=== PATIENT | male | born 1940 | race Caucasian/White ===

== ENCOUNTER 2017-07-05 14:09 | Emergency (ER) | payer OTHER ==
[2017-07-05 14:14] VITALS: TEMP 97.9
--- NOTE | 2017-07-05 14:17 | EDPHY ---
H & P Stated Complaint: hit head on landscape timber Source: Patient Exam Limitations: No limitations - Personal History Current Tetanus/Diphtheria Vaccine: Yes Current Tetanus Diphtheria and Acellular Pertussis (TDAP): Yes - Medical/Surgical History Hx Asthma: No Hx Chronic Respiratory Disease: No Hx Diabetes: No Hx Cardiac Disease: Yes Hx Renal Disease: No Hx Cirrhosis: No Hx Alcoholism: No Hx HIV/AIDS: No Hx Splenectomy or Spleen Trauma: No Other PMH: HTN, - Social History Smoking Status: Never smoked Time Seen by Provider: 07/05/17 14:17 HPI/ROS: CHIEF COMPLAINT: Head injury HISTORY OF PRESENT ILLNESS: The patient presents to the ED with complaints of a head injury. The patient reportedly fell while working outside. He struck his head on rocks. There was unknown loss of consciousness. The patient does complain of a severe frontal headache. He complains of some nasal pain and epistaxis which occurred earlier today. The patient does complain of some mild posterior neck pain. He denies any numbness or weakness. He has some very mild discomfort in his bilateral forearms he attributes to a contusion. He denies any decreased range of motion in his upper extremity. He has no complaints of chest pain, back pain, abdominal pain or lower extremity traumatic complaints. REVIEW OF SYSTEMS: A comprehensive 10 point review of systems is otherwise negative aside from elements mentioned in the history of present illness. (Hay Castillo) - Physical Exam Exam: General Appearance: Alert, no distress Head: Multiple macerated lacerations noted to the forehead and bridge of nose approximately 6 cm total length. Eyes: Pupils equal, round, reactive ENT, Mouth: No hemotympanum, no oral trauma Neck: Mild tenderness to palpation in the cervical spine, poorly localized Respiratory: No chest wall tender, subcutaneous air, lungs clear bilaterally Cardiovascular: Regular rate and rhythm Abdomen: Abdomen is soft and nontender, pelvis stable Skin: No lacerations, No abrasion Back: No midline T/L/S pain Extremities: Nontender, full range of motion Neurological: A&Ox3, normal motor function, normal sensory exam (Hay Castillo) Constitutional: Initial Vital Signs Temperature (C) 36.6 C 07/05/17 14:12 Heart Rate 65 07/05/17 14:12 Respiratory Rate 16 07/05/17 14:12 Blood Pressure 151/87 H 07/05/17 14:12 O2 Sat (%) 98 07/05/17 14:12 O2 Delivery Mode Room Air Allergies/Adverse Reactions: Penicillins Allergy (Verified 07/05/17 14:11) Home Medications: Medication Instructions Recorded Advil 07/05/17 Calcium 07/05/17 DIAZEPAM 07/05/17 Fish Oil 1,000 mg Softgel 07/05/17 Flurazepam HCl 07/05/17 Lisinopril 07/05/17 Baker 5/325 (*) 07/05/17 Omeprazole 07/05/17 Terazosin HCl 07/05/17 amLODIPine BESYLATE 07/05/17 Medical Decision Making - Diagnostics Imaging Results: Imaging Impressions Cervical Spine CT 07/05/17 14:21 Impression: 1. Frontal scalp hematoma. 2. Bilateral nasal fractures, fracture extending to the left maxillary nasal spine and associated paranasal soft tissue swelling. 3. Age-related cerebral cortical atrophy, with no acute intracranial abnormality. If there is further clinical concern regarding the patient's symptoms, MR imaging is suggested, if not otherwise contraindicated. Unenhanced CT Scan of the Cervical Spine Technique: A multidetector unenhanced helical CT scan was obtained from the clivus caudally through the upper thoracic spine, with images reformatted at 1.00 mm increments, and are reviewed in soft tissue, bone, and lung windows. Parasagittal and paracoronal reconstructed images are reviewed on the workstation. The DFOV is 16.7 cm. A dose reduction protocol was used. Comparison Study: None. Findings: There is no acute fracture, or facet malalignment. There are ventral and dorsal traction osteophytes at the C3-C4 and C4-C5 levels. The posterior alignment is relatively anatomic. 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 The interspinous distances are normal. The craniocervical junction is normal. The predental space, and the atlantoaxial lateral mass alignment is normal. The base and the tip of the dens are normal. There is no central canal stenosis, neural foraminal impingement, or focal disk herniation identified. There is no prevertebral hematoma or epidural hematoma identified. The prevertebral soft tissues are normal, as are the lung apices. C1-C2: Normal. C2-C3: Normal. C3-C4: There is asymmetric (right significantly greater than left) facet hypertrophy. Uncovertebral degenerative spondylosis results in severe right neural foraminal stenosis. There is minimal left neural foraminal stenosis. There is some circumferential disk bulging, resulting in mild central canal stenosis. C4-C5: There is a dorsal disk osteophyte complex resulting in mild central canal stenosis. Facet hypertrophy and uncovertebral degenerative spondylosis results in severe right neural foraminal stenosis, and there is minimal left neural foraminal stenosis. C5-C6: There is some mild broad-based circumferential disk bulging. There is asymmetric right-sided facet hypertrophy and uncovertebral degenerative spondylosis resulting in mild right neural foraminal stenosis. The left neural foramen remains patent. C6-C7: There is no focal disk herniation, canal stenosis, or significant neural foraminal impingement. C7-T1: Normal. Impression: 1. There is no acute cervical osseous abnormality. 2. 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 If there is further clinical concern regarding the patient's symptoms, correlative MR imaging could be considered, if otherwise not contraindicated. Findings were discussed with Meghan Tavarez M.D. at 15:55, on 07/05/2017. Head CT 07/05/17 14:21 Impression: 1. Frontal scalp hematoma. 2. Bilateral nasal fractures, fracture extending to the left maxillary nasal spine and associated paranasal soft tissue swelling. 3. Age-related cerebral cortical atrophy, with no acute intracranial abnormality. If there is further clinical concern regarding the patient's symptoms, MR imaging is suggested, if not otherwise contraindicated. Unenhanced CT Scan of the Cervical Spine Technique: A multidetector unenhanced helical CT scan was obtained from the clivus caudally through the upper thoracic spine, with images reformatted at 1.00 mm increments, and are reviewed in soft tissue, bone, and lung windows. Parasagittal and paracoronal reconstructed images are reviewed on the workstation. The DFOV is 16.7 cm. A dose reduction protocol was used. Comparison Study: None. Findings: There is no acute fracture, or facet malalignment. There are ventral and dorsal traction osteophytes at the C3-C4 and C4-C5 levels. The posterior alignment is relatively anatomic. 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 The interspinous distances are normal. The craniocervical junction is normal. The predental space, and the atlantoaxial lateral mass alignment is normal. The base and the tip of the dens are normal. There is no central canal stenosis, neural foraminal impingement, or focal disk herniation identified. There is no prevertebral hematoma or epidural hematoma identified. The prevertebral soft tissues are normal, as are the lung apices. C1-C2: Normal. C2-C3: Normal. C3-C4: There is asymmetric (right significantly greater than left) facet hypertrophy. Uncovertebral degenerative spondylosis results in severe right neural foraminal stenosis. There is minimal left neural foraminal stenosis. There is some circumferential disk bulging, resulting in mild central canal stenosis. C4-C5: There is a dorsal disk osteophyte complex resulting in mild central canal stenosis. Facet hypertrophy and uncovertebral degenerative spondylosis results in severe right neural foraminal stenosis, and there is minimal left neural foraminal stenosis. C5-C6: There is some mild broad-based circumferential disk bulging. There is asymmetric right-sided facet hypertrophy and uncovertebral degenerative spondylosis resulting in mild right neural foraminal stenosis. The left neural foramen remains patent. C6-C7: There is no focal disk herniation, canal stenosis, or significant neural foraminal impingement. C7-T1: Normal. Impression: 1. There is no acute cervical osseous abnormality. 2. 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 If there is further clinical concern regarding the patient's symptoms, correlative MR imaging could be considered, if otherwise not contraindicated. Findings were discussed with Meghan Tavarez M.D. at 15:55, on 07/05/2017. Procedures: Procedure: Laceration repair. I was requested by Dr. Trudi Castillo to perform wound closure I explained the indications, risks and benefits for both laceration repair and anesthetic administration. Verbal consent was obtained from the patient. The lacerations on the forehead , bridge of nose x2, upper lip was anesthetized using 0.5% bupivicaine with epinephrine. After anesthetic administered the patient was observed for a period of time and had no apparent adverse effects. The wounds cleaned, prepped, draped in normal sterile fashion and explored to their base. No foreign body seen, no foreign bodies palpated. There were no deep structures involved. The 6 cm forehead wound was repaired with 11 simple interrupted 6 0 Prolene sutures . The wound repair was complex. The 2 cm bridge of nose laceration closed with 2 simple interrupted 6 0 Prolene sutures. Wound repair was simple The 0.75 cm upper lip laceration crossing the vermilion border was closed with 1 simple interrupted 6 0 Prolene suture reapproximating the vermilion borders. Wound repair simple The procedure was performed by myself. Patient has been informed that scarring will occur, although efforts have been made to minimize this. (Alondra Carvalho) ED Course/Re-evaluation: The patient presents to the ED after mechanical fall and resultant facial lacerations and trauma. Given his complaints of headache, age, mechanism of injury and physical exam findings the CT scan of the head and cervical spine were ordered. The patient has no evidence of an additional traumatic injury noted on exam. The patient does have multiple lacerations noted to his head and nose which were repaired by the physician email marketing assistant under my supervision. The patient will be turned over to Dr. Tavarze pending results of his CT scans. (Hay Castillo) Differential Diagnosis: Differential diagnosis considered includes intracranial hemorrhage, skull fracture, concussion, cervical spine fracture (Hay Castillo) Other Provider: I assumed care of this patient from Dr. Castillo at 3:00 p.m.. At that time CT scans were pending. I received report on the CT scans from Dr. Mckenna. CT scan of the head does not show an acute intracranial injury. There is a scalp hematoma, bilateral nasal fractures with the left fracture extending into the maxillary sinus nasal spine. CT scan of the cervical spine shows C3-4 and C4-5 right foraminal stenosis. At the time of my interview with the patient he was no longer complaining of any right arm discomfort other than some the pain of the forearm. I palpated the bones of his forearm--there are no deformities. He has full active range motion of his right shoulder, elbow, and wrist. I do not suspect fracture. He denies numbness or weakness of either arm. He is not currently experiencing midline neck pain. I relayed the results of the CT scans to the patient and his . I reviewed the aftercare instructions with them. I provided them with some information about concussion, at their request. They expressed understanding of the aftercare instructions. He plans to follow up with Dr. Senior of ENT concerning his nasal fracture. (Meghan Tavarez) Departure - Departure Disposition: Home, Routine, Self-Care Clinical Impression: Facial contusion Qualifiers: Encounter type: initial encounter Qualified Code(s): S00.83XA - Contusion of other part of head, initial encounter Facial laceration Qualifiers: Encounter type: initial encounter Qualified Code(s): S01.81XA - Laceration without foreign body of other part of head, initial encounter Nasal fracture Qualifiers: Encounter type: initial encounter Fracture type: open Qualified Code(s): S02.2XXB - Fracture of nasal bones, initial encounter for open fracture Condition: Good Instructions: Nasal Fracture (ED), R.I.C.E. Treatment (ED), Facial Contusion ( ED) Additional Instructions: 1. Return to the emergency department in 5 days for suture removal. 2. Please return to the emergency department for severe headache, numbness, weakness, new pain or other concerns. 3. Please schedule a follow-up appointment within the 3-5 days with the Ear Nose Throat physician, Dr. Senior, you have been referred to for evaluation of your nasal fracture. 4. Check in with Dr. Melendez also, just to be sure that you are healing appropriately. Referrals: Andre Senior MD [Medical Doctor] - As per Instructions Krish Melendez MD [Primary Care Provider] - As per Instructions
[2017-07-05 16:28] VITALS: BP 156/90; PULSE 64; RESP 18; O2SAT 94
== END 2017-07-05 16:27 | disposition home or self-care (01) ==
PROC: 0HQ1XZZ Repair Face Skin, External Approach (ICD-10-PCS; principal; 2017-07-05)
PROC: 09QKXZZ Repair Nasal Mucosa and Soft Tissue, External Approach (ICD-10-PCS; principal; 2017-07-05)
PROC: 0CQ0XZZ Repair Upper Lip, External Approach (ICD-10-PCS; principal; 2017-07-05)
DX: S02.2XXB Fracture of nasal bones, initial encounter for open fracture (principal); S01.21XA Laceration without foreign body of nose, initial encounter; S01.511A Laceration without foreign body of lip, initial encounter; S01.81XA Laceration without foreign body of other part of head, initial encounter; I10 Essential (primary) hypertension; W22.8XXA Striking against or struck by other objects, initial encounter; Y92.89 Other specified places as the place of occurrence of the external cause; Y99.0 Civilian activity done for income or pay; Y93.89 Activity, other specified